=== PATIENT | female | born 1955 | race Caucasian/White ===

== ENCOUNTER 2016-05-16 00:16 | Emergency (ER) | payer OTHER ==
[2016-05-16 02:03] LABS: ABSOLUTE BASOPHIL COUNT 0.1 /CUMM (0.0-0.2); ABSOLUTE EOSINOPHIL COUNT 0.1 /CUMM (0.0-0.7); ABSOLUTE GRANULOCYTE CT 11.5 /CUMM (1.4-6.5); BASOPHIL % 0.4 % (0.0-2.0); EOSINOPHIL % 0.5 % (0-5); GRANULOCYTE % 78.3 % (42.2-75.2); HEMATOCRIT 44.2 % (37-47); MEAN CORPUSCULAR HGB CONC 34.2 G/DL (33.0-37.0); MEAN CORPUSCULAR VOLUME 90.8 FL (81.0-99.0); MEAN PLATELET VOLUME 7.8 FL (7.4-10.4); PLATELET COUNT 257 /CUMM (130-400); RED BLOOD CELL CT 4.87 /CUMM (4.20-5.40); WHITE BLOOD CELL COUNT 14.6 /CUMM (4.8-10.8)
--- NOTE | 2016-05-16 03:00 | ED GI/GU/ABDOMINAL COMPLAINT ---
History of Present Illness General Chief Complaint: Abdominal Pain/Flank Pain Stated Complaint: LOWER ABD PAIN,FEVER,THINK BURST OVARIAN CYST Source: patient Exam Limitations: no limitations Vital Signs & Intake/Output Vital Signs & Intake/Output Vital Signs Date Time Temp Pulse Resp B/P Pulse O2 O2 Flow FiO2 Ox Delivery Rate 05/16 520 101.0 94 22 132/62 95 Room Air 05/16 518 101.0 05/163 99.9 85 20 132/64 91 Room Air Allergies Coded Allergies: NO KNOWN ALLERGIES (05/11/12) Reconcile Medications Ciprofloxacin HCl (Cipro) 500 MG TABLET 1 TAB PO BID diverticulitis Metronidazole (Flagyl) 500 MG TABLET 1 TAB PO 4 TIMES/DAY diverticulitis Triage Nurses Notes Reviewed? yes ? n Is pt currently ? No Onset: Gradual Duration: week(s):, waxing and waning Timing: recent history Quality/Severity: cramping Location: lower abdomen Radiation: no radiation Activities at Onset: none Prior Abdominal Problems: "feels differnt from my diverticulitis" Associated Symptoms: mild diarrhea, mild nausea, HPI: 60 yo woman in prior good health, presents with lower abdominal pain x 1 week, "off and on." "It felt like I was giving , but now I feel better... feels different from diverticulitis... Maybe it's an ovarian cyst." No fever, chills, chest pain. "It feels a little better when I urinate." She is otherwise well. Past History Travel History Traveled to [place] past 21 day No Medical History Any Pertinent Medical History? see below for history Surgical History Surgical History: none Psychosocial History What is your primary language Occitan Family History Hx Contributory? No Review of Systems Review of Systems Constitutional: Reports: no symptoms. EENTM: Reports: no symptoms. Respiratory: Reports: no symptoms. Cardiovascular: Reports: no symptoms. GI: Reports: no symptoms. Genitourinary: Reports: no symptoms. Musculoskeletal: Reports: no symptoms. Skin: Reports: no symptoms. Neurological/Psychological: Reports: no symptoms. Hematologic/Endocrine: Reports: no symptoms. Immunologic/Allergic: Reports: no symptoms. All Other Systems: Reviewed and Negative Physical Exam Physical Exam General Appearance: well developed/nourished, mild distress Head: atraumatic Eyes: Bilateral: normal appearance. Ears, Nose, Throat, Mouth: hearing grossly normal Neck: normal inspection, supple, full range of motion, normal alignment Respiratory: normal breath sounds, chest non-tender, no respiratory distress, quiet respiration, lungs clear Cardiovascular: regular rate/rhythm Gastrointestinal: normal bowel sounds, soft, mild tenderness at left lower and right lower quadrant Back: normal inspection, normal range of motion Extremities: normal range of motion Neurologic/Psych: no motor/sensory deficits, awake, alert, oriented x 3 Skin: intact, normal color, warm/dry Core Measures ACS in differential dx? No Severe Sepsis Present: No Septic Shock Present: No Progress Differential Diagnosis: UTI/pyelo, diverticulitis vs other. Plan of Care: Orders Procedure Date/time Status URINALYSIS 05/16 304 Complete LIPASE 05/16 129 Complete HEPATIC FUNCTION PANEL 05/16 129 Complete HUMAN BETA HCG SCREEN 05/16 129 Complete CBC WITHOUT DIFFERENTIAL 05/16 129 Complete BASIC METABOLIC PANEL 05/16 129 Complete AMYLASE 05/16 129 Complete Laboratory Tests 05/16/16 0315: Urine Color STRAW, Urine Clarity CLEAR, Urine pH 6.5, Ur Specific [place] 1.010, Urine Protein NEG, Urine Ketones NEG, Urine Nitrite NEG, Urine Bilirubin NEG, Urine Urobilinogen 0.2, Ur Leukocyte Esterase NEG, Ur Microscopic SEDIMENT EXAMINED, Urine RBC 1-3, Urine Mucus RARE, Urine Hemoglobin TRACE-INTACT, Urine Glucose NEG 05/16/16 0153: Anion Gap 15, Estimated GFR > 60, BUN/Creatinine Ratio 14.3, Glucose 145 H, Calcium 9.5, Total Bilirubin 0.9, Direct Bilirubin 0.4, AST 37 H, ALT 28, Alkaline Phosphatase 107, Total Protein 7.5, Albumin 4.3, Amylase < 30 L, Lipase 82, Total Beta HCG NEGATIVE, CBC w Diff NO MAN DIFF REQ, RBC 4.87, MCV 90.8, MCH 31.0, RDW 13.0, MPV 7.8, Gran % 78.3 H, Lymphocytes % 14.0 L, Monocytes % 6.8, Eosinophils % 0.5, Basophils % 0.4, Absolute Granulocytes 11.5 H, Absolute Lymphocytes 2.0, Absolute Monocytes 1.0 H, Absolute Eosinophils 0.1 , Absolute Basophils 0.1, PUBS MCHC 34.2 Diagnostic Imaging: Viewed by Me: CT Scan. Discussed w/RAD: CT Scan. Radiology Impression: abd/pelvic ct... sigmoid diverticulitis... full report below. Initial ED EKG: none Comments: PATIENT: ANA CARROLL PRESENT AGE: 60 PATIENT ACCOUNT NO: [id number] : 59 LOCATION: [facility] ORDERING PHYSICIAN: DA PRIDE MD SERVICE DATE: 05/16/16 EXAM TYPE: CAT - CT ABD & PELVIS W/O IV CONTRAS EXAMINATION: CT ABDOMEN AND PELVIS WITHOUT CONTRAST CLINICAL INFORMATION: Left lower quadrant pain. Question diverticulitis, kidney stones. COMPARISON: None. TECHNIQUE: Multidetector volumetric imaging was performed from the superior aspect of the liver through the pubic symphysis. Sagittal and coronal reformatted images were obtained on the technologist's workstation. DLP: 1168 mGy-cm. FINDINGS: LUNG BASES: The visualized lung bases are unremarkable. LIVER, GALLBLADDER, AND BILIARY TREE: Hypoattenuation of the hepatic parenchyma is consistent with steatosis. No focal hepatic lesions. No biliary ductal dilatation. The gallbladder is unremarkable with no evidence of radiopaque gallstones, gallbladder wall thickening, or obvious pericholecystic inflammatory changes. PANCREAS: Unremarkable. SPLEEN: Unremarkable. ADRENAL GLANDS: Unremarkable. KIDNEYS AND URETERS: The kidneys are normal in size, shape, and attenuation. No hydronephrosis, hydroureter, or calculi seen. No perinephric stranding. BLADDER: Unremarkable. GASTROINTESTINAL TRACT: Stomach, small bowel, and colon are normal in caliber. There is an 8 cm segment of bowel wall thickening and surrounding pericolonic inflammation at the proximal sigmoid colon, consistent with acute sigmoid diverticulitis. The surrounding intraperitoneal free fluid. No abscesses are identified. ABDOMINAL WALL: No significant hernia is appreciated. LYMPH NODES: Normal. VASCULAR: Unremarkable. PELVIC VISCERA: The uterus and adnexa are unremarkable. OSSEOUS STRUCTURES: There is [id number] multilevel degenerative disc disease in the lumbar spine with mild left convex lumbar scoliosis. 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 IMPRESSION: 1. Acute sigmoid diverticulitis. No perforation or abscess. 2. Hepatic steatosis. DICTATED BY: AYLIN MONTELONGO MD DATE/TIME DICTATED:05/16/16410 MELTING FURNACE SKIMMER:[place] DATE/TIME TRANSCRIBED:05/16/16410 CONFIDENTIAL, DO NOT COPY WITHOUT APPROPRIATE AUTHORIZATION. <Electronically signed in Other Vendor System> SIGNED BY: AYLIN MONTELONGO MD 05/16/16 0423 Departure Departure Disposition: HOME OR SELF CARE Condition: Stable Clinical Impression Primary Impression: Abdominal pain Secondary Impressions: Diverticulitis Referrals: ALBIN CANTU,STACY Thomas (PCP/Family) Referred to [facility] as new patient No Departure Forms: Customer Survey General Discharge Information Prescriptions: Current Visit Scripts Ciprofloxacin HCl (Cipro) 1 TAB PO BID #20 TAB Metronidazole (Flagyl) 1 TAB PO 4 TIMES/DAY #40 TAB
--- NOTE | 2016-05-16 04:23 | CT SCAN REPORT ---
EXAMINATION: CT ABDOMEN AND PELVIS WITHOUT CONTRAST CLINICAL INFORMATION: Left lower quadrant pain. Question diverticulitis, kidney stones. COMPARISON: None. TECHNIQUE: Multidetector volumetric imaging was performed from the superior aspect of the liver through the pubic symphysis. Sagittal and coronal reformatted images were obtained on the technologist's workstation. DLP: 1168 mGy-cm. FINDINGS: LUNG BASES: The visualized lung bases are unremarkable. LIVER, GALLBLADDER, AND BILIARY TREE: Hypoattenuation of the hepatic parenchyma is consistent with steatosis. No focal hepatic lesions. No biliary ductal dilatation. The gallbladder is unremarkable with no evidence of radiopaque gallstones, gallbladder wall thickening, or obvious pericholecystic inflammatory changes. PANCREAS: Unremarkable. SPLEEN: Unremarkable. ADRENAL GLANDS: Unremarkable. KIDNEYS AND URETERS: The kidneys are normal in size, shape, and attenuation. No hydronephrosis, hydroureter, or calculi seen. No perinephric stranding. BLADDER: Unremarkable. GASTROINTESTINAL TRACT: Stomach, small bowel, and colon are normal in caliber. There is an 8 cm segment of bowel wall thickening and surrounding pericolonic inflammation at the proximal sigmoid colon, consistent with acute sigmoid diverticulitis. The surrounding intraperitoneal free fluid. No abscesses are identified. ABDOMINAL WALL: No significant hernia is appreciated. LYMPH NODES: Normal. VASCULAR: Unremarkable. PELVIC VISCERA: The uterus and adnexa are unremarkable. OSSEOUS STRUCTURES: There is [id number] multilevel degenerative disc disease in the lumbar spine with mild left convex lumbar scoliosis. 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 IMPRESSION: 1. Acute sigmoid diverticulitis. No perforation or abscess. 2. Hepatic steatosis.
[2016-05-16] MEDS ORDERED: FLAGYL500 MG PO (04:47)
[2016-05-16] MEDS ORDERED: CIPRO500 M1 PO (04:47)
[2016-05-16 05:21] VITALS: BP 132/62
== END 2016-05-16 05:19 ==
LOC: ERH 00:16
PROVIDERS: Pediatrics
DX: K57.92 Diverticulitis of intestine, part unspecified, without perforation or abscess without bleeding (principal); R50.9 Fever, unspecified
CPT/HCPCS: 74176; 81001